=== PATIENT | male | born 1995 | race Caucasian/White ===

== ENCOUNTER 2017-06-02 12:37 | Inpatient (IN) | payer OTHER ==
[2017-06-02 12:37] VITALS: BP 152/90; PULSE 75; RESP 18; O2SAT 100
[~2017-06-02 12:37] MED LIST: DEXAMETHASONE SOD PHOS 4 MG/ML VIAL IV ONE; GLYCOPYRROLATE 1 MG/5 ML SYRINGE IV PUSH ONE; LACTATED RINGER'S 1000 ML INJ 1,000 ML IV ONE; LIDOCAINE HCL 1% PF 5 ML AMPULE OTHER ONE; MIDAZOLAM HCL 2 MG/2 ML VIAL IV ONE; NEOSTIGMINE 3 MG/3 ML SYR IV ONE; NORMOSOL R INJ 1,000 ML IV ONE; ONDANSETRON HCL 4 MG/2 ML VIAL IV PUSH ONE; PROPOFOL 200 MG/20 ML AMP IV ONE; ROCURONIUM INJ 50 MG/5 ML SYRINGE IV PUSH ONE; SUCCINYLCHOLINE CHLORIDE 100 MG/5 ML SYRINGE IV PUSH ONE
[2017-06-02] MEDS ORDERED: SODIUM CHLOR 0.9% 1000 ML INJ 1,000 ML IV ONE ×2 (12:45)
[2017-06-02 12:46] VITALS: BP 154/90; PULSE 65; RESP 20; O2SAT 100
[2017-06-02 12:52] VITALS: BP 154/90; PULSE 88; RESP 18; O2SAT 98
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
[2017-06-02 12:57] LABS: AUTOMATED NEUTROPHIL # 3.9 TH/MM3 (1.8-7.7); BASOPHIL # 0.1 TH/MM3 (0-0.2); EOSINOPHIL # 0.1 TH/MM3 (0-0.4); HEMATOCRIT 44.7 % (39.0-51.0); HEMO FLAGS DIFF FINAL; LYMPH % 37.9 % (9.0-44.0); LYMPHOCYTE # 2.8 TH/MM3 (1.0-4.8); MEAN CELL VOLUME 85.2 FL (80.0-100.0); MEAN CORPUSCULAR HEMOGLOBIN 28.6 PG (27.0-34.0); MEAN CORPUSCULAR HGB CONC 33.6 % (32.0-36.0); MONO % 5.7 % (0.0-8.0); NEUT % 54.4 % (16.0-70.0); PLATELET COUNT 235 TH/MM3 (150-450); RED BLOOD COUNT 5.24 MIL/MM3 (4.50-5.90); RED CELL DISTRIBUTION WIDTH 12.1 % (11.6-17.2); WHITE BLOOD COUNT 7.3 TH/MM3 (4.0-11.0)
[2017-06-02 13:07] LABS: POTASSIUM 3.6 MEQ/L (3.5-5.1)
[2017-06-02 13:10] LABS: BICARBONATE 27.3 MEQ/L (21.0-32.0)
[2017-06-02 13:11] LABS: APTT (PATIENT) 23.8 SEC (24.3-30.1); INTERNATIONAL NORMALIZED RATIO 1.1 RATIO; PROTHROMBIN TIME - PATIENT 12.7 SEC (9.8-11.6)
[2017-06-02] MEDS ORDERED: DIPHTH/TETANUS/ACEL PERTUSSIS (BOOSTER) 0.5 ML VIAL/PFS IM ONE (13:12)
[2017-06-02] MEDS ORDERED: ceFAZolin 2 GM/50 ML BAG ONE (13:12)
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
[2017-06-02] MEDS ORDERED: LACTATED RINGER'S 1000 ML INJ 1,000 ML IV ONE (13:25)
[2017-06-02] MEDS ORDERED: HEPARIN SODIUM - IV 10,000 UNITS/10 ML VIAL OTHER ONE (13:54)
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
[2017-06-02] MEDS ORDERED: *morphine SULFATE 8 MG/ML PERIprocedure ONLY ONE ×2 (14:50→15:26)
[2017-06-02] MEDS: SODIUM CHLOR 0.9% 1000 ML INJ 1,000 ML IV SCH (14:51)
[2017-06-02] MEDS ORDERED: SODIUM CHLORIDE 0.9% FLUSH 10 ML FLUSH IV FLUSH PRN (15:00)
[2017-06-02] MEDS ORDERED: NALOXONE HCL 0.4 MG/ML AMP IV PUSH PRN (15:00)
[2017-06-02] MEDS ORDERED: Post-op Orders (for Pharmacy) MISC XX ONE (15:00)
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
[2017-06-02] MEDS ORDERED: DO NOT ADM ANY ANTICOAGULANT DRUGS PRN (15:30)
[2017-06-02 18:21] VITALS: BP 140/69; PULSE 84; RESP 16; TEMP 98.5; O2SAT 98
[2017-06-02] MEDS: MORPHINE SULFATE 4 MG/ML INJ IV PUSH PRN ×2 (18:40→22:15)
[2017-06-02] MEDS: FAMOTIDINE 20 MG TAB PO SCH (19:36)
[2017-06-02] MEDS: SODIUM CHLORIDE 0.9% FLUSH 10 ML FLUSH IV FLUSH SCH (19:36)
[2017-06-02] MEDS: ONDANSETRON HCL 4 MG/2 ML VIAL IV PUSH PRN (19:37)
[2017-06-02 20:00] VITALS: BP 141/71; PULSE 81; RESP 18; TEMP 98; O2SAT 100
[2017-06-02] MEDS ORDERED: DOCUSATE SODIUM 100 MG CAP PO SCH (21:00)
[2017-06-03] VITALS: BP 137/72; PULSE 93; RESP 18; TEMP 99.1; O2SAT 99
[2017-06-03 01:40] VITALS: O2SAT 97
[2017-06-03] MEDS: MORPHINE SULFATE 4 MG/ML INJ IV PUSH PRN ×2 (04:20→10:41)
[2017-06-03] MEDS: SODIUM CHLOR 0.9% 1000 ML INJ 1,000 ML IV SCH (05:58)
[2017-06-03] MEDS ORDERED: LACTULOSE SYRUP 20 GM/30 ML CUP PO PRN (06:45)
[2017-06-03 08:00] VITALS: BP 128/57; PULSE 81; RESP 16; TEMP 97.3; O2SAT 98
--- NOTE | 2017-06-03 08:04 | MP ---
cc: JEREMIAH CHING MD DATE OF SURGERY 06/02/2017 PREOPERATIVE DIAGNOSIS Large laceration of the right lower neck/right shoulder with bleeding. POSTOPERATIVE DIAGNOSIS Large laceration of the right lower neck/right shoulder with bleeding. OPERATIVE PROCEDURE 1. Ligation of branches of the subclavian artery in the lower neck and medial shoulder. 2. Ligation of the external jugular vein, irrigation of the area, meticulous hemostasis and closure repair. SURGEON Dr. Ching ANESTHESIA General. ESTIMATED BLOOD LOSS 100 cc. OPERATIVE PROCEDURE The patient was prepped and draped in the usual fashion, positioned as if this was a carotid surgery with neck rotated to the left. The large incision is now explored. It measures about 4-5 inches in length. It comes obliquely across the median part of the right shoulder and lower neck. It is explored by placing retractors and then irrigating at first. There are some deep bleeders present which are relatively small and most of them branches of subclavian artery. These are ligated with 2-0 Vicryl stick tie [id number]. The external jugular vein is clearly cut; this one is ligated in the same fashion. Several other bleeders are present and this is controlled with some Ligaclips. Now the whole wound is irrigated with copious amounts of saline and then remaining muscular bleeders are cauterized. It is apparent that the patient does not have injury to the main subclavian artery or the main carotid artery and all the branches which are fairly large and bleeding fairly perfused. Once this is all controlled the area is irrigated with copious amounts of saline and then incision is closed in layers using 2-0 Vicryl for the deeper layers and 3-0 Prolene interrupted for the skin. The patient tolerated procedure well. Jeremiah MONIQUE/CITLALLI /2:48 PM /7:53 AM
[2017-06-03 08:08] LABS: AUTOMATED NEUTROPHIL # 10.6 TH/MM3 (1.8-7.7); BASOPHIL % 0.2 % (0.0-2.0); HEMATOCRIT 30.8 % (39.0-51.0); HEMO FLAGS DIFF FINAL; LYMPH % 13.2 % (9.0-44.0); LYMPHOCYTE # 1.8 TH/MM3 (1.0-4.8); MEAN CELL VOLUME 86.4 FL (80.0-100.0); MEAN CORPUSCULAR HEMOGLOBIN 29.6 PG (27.0-34.0); MEAN CORPUSCULAR HGB CONC 34.2 % (32.0-36.0); MONO % 7.9 % (0.0-8.0); NEUT % 78.7 % (16.0-70.0); PLATELET COUNT 207 TH/MM3 (150-450); RED BLOOD COUNT 3.57 MIL/MM3 (4.50-5.90); WHITE BLOOD COUNT 13.5 TH/MM3 (4.0-11.0)
[2017-06-03] MEDS: oxyCODONE/ACETAMINOPHEN 5 MG/325 MG TAB PO PRN ×3 (08:46→16:58)
[2017-06-03] MEDS: DOCUSATE SODIUM 50 MG/SENNA 8.6 MG TAB PO SCH ×2 (08:47→22:55)
[2017-06-03] MEDS: FAMOTIDINE 20 MG TAB PO SCH ×2 (08:47→22:55)
[2017-06-03] MEDS: SODIUM CHLORIDE 0.9% FLUSH 10 ML FLUSH IV FLUSH SCH ×2 (08:55→22:55)
[2017-06-03] MEDS ORDERED: INFLUENZA VIRUS VACCINE (QUADRIVALENT) 0.5 ML SYR IM ONE (09:00)
[2017-06-03 12:00] VITALS: BP 138/62; PULSE 69; RESP 18; TEMP 97.5; O2SAT 98
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
[2017-06-03 14:22] LABS: AUTOMATED NEUTROPHIL # 3.1 TH/MM3 (1.8-7.7); BASOPHIL % 0.4 % (0.0-2.0); EOSINOPHIL # 0.1 TH/MM3 (0-0.4); EOSINOPHIL % 1.3 % (0.0-4.0); HEMATOCRIT 36.3 % (39.0-51.0); LYMPH % 37.2 % (9.0-44.0); LYMPHOCYTE # 2.2 TH/MM3 (1.0-4.8); MEAN CELL VOLUME 87.1 FL (80.0-100.0); MEAN CORPUSCULAR HEMOGLOBIN 29.4 PG (27.0-34.0); MEAN CORPUSCULAR HGB CONC 33.8 % (32.0-36.0); MONO % 7.8 % (0.0-8.0); NEUT % 53.3 % (16.0-70.0); PLATELET COUNT 172 TH/MM3 (150-450); RED BLOOD COUNT 4.16 MIL/MM3 (4.50-5.90); RED CELL DISTRIBUTION WIDTH 12.7 % (11.6-17.2); WHITE BLOOD COUNT 5.9 TH/MM3 (4.0-11.0)
[2017-06-03 14:23] LABS: HEMO FLAGS DIFF FINAL
[2017-06-03 14:24] LABS: I-STAT POTASSIUM 3.8 MMOL/L (3.5-4.9)
[2017-06-03 15:51] LABS: APTT (PATIENT) 26.3 SEC (24.3-30.1); INTERNATIONAL NORMALIZED RATIO 1.2 RATIO; PROTHROMBIN TIME - PATIENT 13.3 SEC (9.8-11.6)
[2017-06-03 16:00] VITALS: BP 131/59; PULSE 87; RESP 18; TEMP 97.6; O2SAT 97
[2017-06-03 20:00] VITALS: BP 146/67; PULSE 94; RESP 18; TEMP 98.3; O2SAT 100
[2017-06-03] MEDS: oxyCODONE/ACETAMINOPHEN 10 MG/325 MG TAB PO PRN (22:55)
[2017-06-04] VITALS: BP 131/62; PULSE 95; RESP 18; TEMP 98; O2SAT 98
[2017-06-04] MEDS: SODIUM CHLOR 0.9% 1000 ML INJ 1,000 ML IV SCH (01:07)
[2017-06-04] MEDS: oxyCODONE/ACETAMINOPHEN 10 MG/325 MG TAB PO PRN ×3 (05:08→12:58)
[2017-06-04 07:35] LABS: AUTOMATED NEUTROPHIL # 6.2 TH/MM3 (1.8-7.7); BASOPHIL % 0.3 % (0.0-2.0); EOSINOPHIL % 0.4 % (0.0-4.0); HEMATOCRIT 27.4 % (39.0-51.0); HEMO FLAGS DIFF FINAL; LYMPH % 22.9 % (9.0-44.0); LYMPHOCYTE # 2.1 TH/MM3 (1.0-4.8); MEAN CELL VOLUME 87.3 FL (80.0-100.0); MEAN CORPUSCULAR HEMOGLOBIN 30.6 PG (27.0-34.0); MONO % 8.2 % (0.0-8.0); NEUT % 68.2 % (16.0-70.0); PLATELET COUNT 146 TH/MM3 (150-450); RED BLOOD COUNT 3.14 MIL/MM3 (4.50-5.90); RED CELL DISTRIBUTION WIDTH 12.8 % (11.6-17.2); WHITE BLOOD COUNT 9.1 TH/MM3 (4.0-11.0)
[2017-06-04] MEDS: DOCUSATE SODIUM 50 MG/SENNA 8.6 MG TAB PO SCH (07:49)
[2017-06-04] MEDS: FAMOTIDINE 20 MG TAB PO SCH (07:49)
[2017-06-04] MEDS: SODIUM CHLORIDE 0.9% FLUSH 10 ML FLUSH IV FLUSH SCH (07:50)
[2017-06-04 07:57] LABS: BICARBONATE 27.7 MEQ/L (21.0-32.0); POTASSIUM 3.8 MEQ/L (3.5-5.1)
[2017-06-04 08:00] VITALS: BP 130/67; PULSE 82; RESP 18; TEMP 97.9; O2SAT 99
[2017-06-04] MEDS: ONDANSETRON HCL 4 MG/2 ML VIAL IV PUSH PRN (10:37)
[2017-06-04 12:00] VITALS: BP 133/68; PULSE 85; RESP 18; TEMP 97.6; O2SAT 97
[2017-06-04] MEDS ORDERED: OXYC1TAB63 PO (12:18)
[2017-06-04] MEDS ORDERED: SENN1TAB PO (12:18)
[2017-06-04] MEDS ORDERED: CEPH-460 PO (12:24)
[2017-06-04] MEDS ORDERED: ZOFR4TAB3 SL (12:32)
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
== END 2017-06-04 14:17 | disposition home or self-care (01) | DRG 959 ==
LOC: PHED 12:37 → NEDA 13:22 → N07B 18:06
PROVIDERS: ADMIT Surgery; ATTEND Surgery
PROC: 05QP0ZZ Repair Right External Jugular Vein, Open Approach (ICD-10-PCS; 2017-06-02)
PROC: 03Q30ZZ Repair Right Subclavian Artery, Open Approach (ICD-10-PCS; principal; 2017-06-02 13:21)
DX: S11.91XA Laceration without foreign body of unspecified part of neck, initial encounter (principal); S25.1 Injury of innominate or subclavian artery; S15.211A Minor laceration of right external jugular vein, initial encounter; W25.XXXA Contact with sharp glass, initial encounter; Y99.0 Civilian activity done for income or pay; Z23 Encounter for immunization
CPT/HCPCS: 71010; 80048; 82435; 82565; 82947; 84132; 84295; 84520; 85025; 85610; 85730; 86850; 86900; 86901; 90471; 90686; 90715; 96374; 99291; G0390; J0330; J0690; J1100; J1644; J2250; J2270; J2405; J2710; J3010; J7030; J7120; Q2038

== ENCOUNTER 2017-06-08 15:17 | Emergency (ER) | payer OTHER ==
[~2017-06-08] VITALS: Ht 170.2 cm; Wt 82.0 kg
[~2017-06-08 15:17] MED LIST changes: +CEPH-460 PO; -DEXAMETHASONE SOD PHOS 4 MG/ML VIAL IV ONE; -GLYCOPYRROLATE 1 MG/5 ML SYRINGE IV PUSH ONE; -LACTATED RINGER'S 1000 ML INJ 1,000 ML IV ONE; -LIDOCAINE HCL 1% PF 5 ML AMPULE OTHER ONE; -MIDAZOLAM HCL 2 MG/2 ML VIAL IV ONE; -NEOSTIGMINE 3 MG/3 ML SYR IV ONE; -NORMOSOL R INJ 1,000 ML IV ONE; -ONDANSETRON HCL 4 MG/2 ML VIAL IV PUSH ONE; +OXYC1TAB63 PO; -PROPOFOL 200 MG/20 ML AMP IV ONE; -ROCURONIUM INJ 50 MG/5 ML SYRINGE IV PUSH ONE; +SENN1TAB PO; -SUCCINYLCHOLINE CHLORIDE 100 MG/5 ML SYRINGE IV PUSH ONE; +ZOFR4TAB3 SL
[2017-06-08 15:18] VITALS: BP 134/88; PULSE 71; RESP 16; TEMP 98.6; O2SAT 98
[2017-06-08] MEDS ORDERED: PERC5TAB12 PO (17:13)
--- NOTE | 2017-06-08 17:13 | PD ---
HPI Chief Complaint: Medication Refill Request Time Seen by Provider: 17:03 Travel History International Travel<30 days: No Contact w/Intl Traveler<30days: No Traveled to known affect area: No History of Present Illness HPI 22-year-old male presents to the emergency department for evaluation of right neck/shoulder pain. Patient was involved in a trauma on June 02 are ED as a trauma alert which a large piece of glass fell, lacerating the right lateral neck/shoulder. He went to the OR with Dr. Hunt. He was discharged June 04 with Percocet 1-2 tablets every 4 hours as needed for pain. Patient is out of this medication and does not see Dr. Hunt until Friday, in 2 days. States that the pain is unbearable. Rates it a 10 out of 10. He reports no new injury. No fever or chills. No alterations in sensation or limitations in range of motion. Reports that he has been taking the pain medication every 4 hours. PFSH Past Medical History Medical History: Denies Significant Hx Social History Tobacco Use: No Substance Use: No Allergies-Medications (Allergen,Severity, Reaction): Coded Allergies: No Known Allergies (Unverified , 06/02/17) Reported Meds & Prescriptions Reported Meds & Active Scripts Active Percocet (Oxycodone-Acetaminophen) 5-325 mg Tab 1 Tab PO Q6H PRN Zofran Odt (Ondansetron Odt) 4 Mg Tab 4 Mg SL Q6HR PRN Keflex (Cephalexin) 500 Mg Cap 500 Mg PO Q12H 7 Days Senna Plus 8.6-50 mg (Sennosides-Docusate Sodium) 8.6 Mg-50 Mg Tab 2 Tab PO BID Oxycodone-Acetaminophen 5-325 mg Tab 1-2 Tab PO Q4H PRN Review of Systems Except as stated in HPI: all other systems reviewed are Neg Physical Exam Narrative GENERAL: Well-nourished male patient, in no acute distress SKIN: Focused skin assessment warm/dry. Centimeter laceration on the right anterior lateral neck/shoulder area. Sutures are in place. No erythema or edema. No bleeding or drainage. HEAD: Atraumatic. Normocephalic. EYES: Pupils equal and round. No scleral icterus. No injection or drainage. ENT: No nasal bleeding or discharge. Mucous membranes pink and moist. NECK: Trachea midline. No JVD. CARDIOVASCULAR: Regular rate and rhythm. No murmur appreciated. RESPIRATORY: No accessory muscle use. Clear to auscultation. Breath sounds equal bilaterally. GASTROINTESTINAL: Abdomen soft, non-tender, nondistended. Hepatic and splenic margins not palpable. MUSCULOSKELETAL: No obvious deformities. No clubbing. No cyanosis. No edema. NEUROLOGICAL: Awake and alert. No obvious cranial nerve deficits. Motor grossly within normal limits. Normal speech. PSYCHIATRIC: Appropriate mood and affect; insight and judgment normal. Data Data Last Documented VS Vital Signs Date Time Temp Pulse Resp B/P (MAP) Pulse Ox O2 Delivery O2 Flow Rate FiO2 06/08/17 17:47 06/08/17 15:18 98.6 71 16 98 MDM Medical Decision Making Medical Screen Exam Complete: Yes Emergency Medical Condition: Yes Medical Record Reviewed: Yes Differential Diagnosis Postop pain versus wound infection versus wound dehiscence versus narcotic seeking Narrative Course 22 year-old male presents to the emergency department for evaluation and a refill on his pain medication abrasion appears without distress. Laceration appears to be healing with sutures intact. No signs or symptoms of infection. The patient does have his pain medication bottle with him. He tells me he has been taking 1-2 every 4 hours since he was discharged. I explained to him that this is a nasty to medication and I will not be prescribing it to him for every 4 hours. I'll give him 6 tablets to make it until Friday when he can follow- up with Dr. Casarez for further pain control options. He agrees to return immediately with any acute worsening of symptoms. Diagnosis Primary Impression: Post-op pain Additional Impression: Laceration of neck Qualified Codes: S11.91XA - Laceration without foreign body of unspecified part of neck, initial encounter Referrals: Jeremiah Ortiz MD Primary Care Physician Patient Instructions: General Instructions, Narcotic Pain Management (ED) Additional Instructions: Keep your appointment for Friday Medication is scheduled 4 as needed. You do not need to take it unless you are having pain Return immediately to the emergency department with any acute worsening of symptoms Med/Other Pt SpecificInfo: Prescription(s) given Scripts Oxycodone-Acetaminophen (Percocet) 5-325 mg Tab 1 TAB PO Q6H Y for PAIN, #6 TAB 0 Refills Prov: Yamel Torres 06/08/17 Disposition: 01 DISCHARGE HOME Condition: Stable Yamel Torres Jun 08, 2017 17:13
== END 2017-06-08 17:49 | disposition home or self-care (01) ==
LOC: NEPD 15:17
DX: G89.18 Other acute postprocedural pain (principal); M54.2 Cervicalgia; W20.8XXA Other cause of strike by thrown, projected or falling object, initial encounter; W25.XXXD Contact with sharp glass, subsequent encounter
CPT/HCPCS: 99281